=== PATIENT | male | born 1995 | race African-American/Black ===

== ENCOUNTER 2016-08-13 15:00 | Inpatient (IN) | payer OTHER ==
--- NOTE | ~2016-08-13 | HP ---
Unit #: [id number] #: [id number] Patient: ARNOL PRESTON [id number] [place] [address] [id number] I MR#: [id number] NAME: ARNOL PRESTON ROOM: P207 Age: 20 Sex: M Admission Date: 08/13/2016 : 1995 Attending Physician: Ant Bourgeois M.D. Admitting Physician: Ant Bourgeois M.D. Primary Care Physician: Generic Doctor Not In System HISTORY AND PHYSICAL HISTORY OF PRESENT ILLNESS The patient is a 20-year-old male admitted to [address] [place] [address] on 08/13/2016 to detox from alcohol. PAST MEDICAL HISTORY The patient denies. PAST SURGICAL HISTORY 1. Right thumb 2. A mole removal SOCIAL HISTORY The patient lives with a roommate. He smokes a 1/2 pack of cigarettes daily. He binges on a daily basis with alcohol and uses marijuana and cocaine. FAMILY MEDICAL HISTORY Noncontributory. ALLERGIES No known drug allergies. CURRENT MEDICATIONS The patient is not on any home medications. REVIEW OF SYSTEMS CONSTITUTIONAL: No fever or chills. HEENT: Denies any sore throat, ear pain or runny nose. CARDIOVASCULAR: Denies chest pain, irregular heart rhythm or palpitations. CHEST: Denies shortness of breath or cough. No hemoptysis. GASTROINTESTINAL: Denies nausea, vomiting, diarrhea or chronic constipation. ENDOCRINE: Denies history of increased thirst or urination. No recent significant weight loss or gain. GENITOURINARY: Denies dysuria, frequency, or hematuria. SKIN: Denies any rashes. HEMATOLOGIC: Denies history of increased bleeding or bruising. MUSCULOSKELETAL: Denies any hot, swollen joints. No generalized muscle pain. NEUROLOGIC: Denies problems with vision or speech. No frequent, severe headaches. No numbness, tingling or weakness in any extremities. Denies loss of bladder or bowel control. Unit #: [id number] #: [id number] Patient: ARNOL PRESTON PHYSICAL EXAM GENERAL: He is awake, alert and oriented in no acute distress. VITAL SIGNS: Temperature 98.0, heart rate 95, respiration 20, blood pressure 126/77. HEIGHT: 5'10". WEIGHT: 170 pounds. SKIN: Warm and dry without rash or lesion. HEENT: Normocephalic. TMs not viewed. Oral and nasal passages clear. Conjunctivae clear. PERRLA. EOMs intact. NECK: Supple without lymphadenopathy or thyromegaly. HEART: Regular rate and rhythm without murmur. LUNGS: Clear. ABDOMEN: Soft, nontender. : Not done. EXTREMITIES: No evidence of cyanosis, clubbing or edema. Moves all without focal deficit. NEUROLOGICAL: Grossly within normal limits. Cranial Nerves: II: Visual quintana are intact. III, IV AND : Extraocular movements are intact. Pupils are equal, round and reactive to light. V: Facial sensation is grossly normal. VII: Facial movements and expression are normal. VIII: Auditory acuity grossly intact. IX, X: Uvula is midline. Phonation is normal. XI: Patient shrugs shoulders and turns head normally. XII: Tongue protrudes in the midline. Sensory and Motor Function: Sensory and motor sensation is grossly normal. Motor: moves all extremities well. IMPRESSION 1. Psychiatric admission. 2. Alcohol dependence. 3. Nicotine dependence. RECOMMENDATIONS Psychiatric per psychiatrist. MEDICAL: No contraindication to participate in facility activities. MEDICAL PROGNOSIS Good. MEDICAL CONDITION Stable. Dictated by... Cece Rodriguez/karolina TD: 08/15/2016 03:46 JOB #: [id number] Unit #: [id number] #: [id number] Patient: ARNOL PRESTON HISTORY AND PHYSICAL Page 1 of 1 X EMELY CASH APRN HISTORY AND PHYSICAL
--- NOTE | ~2016-08-13 | PN ---
Unit #: [id number] #: [id number] Patient: ARNOL PRESTON [id number] [facility] [address] [place] [address] [id number] I MR#: [id number] NAME: ARNOL PRESTON ROOM: P207 Age: 20 Sex: M Admission Date: 08/13/2016 : 1995 Attending Physician: Ant Bourgeois M.D. Admitting Physician: Ant Bourgeois M.D. Primary Care Physician: Generic Doctor Not In System [facility] PROGRESS NOTES DATE OF SERVICE: 08/16/2016 DISCUSSION Mr. Gray is a 20-year-old male, seen on 08/16/2016. The patient interviewed, chart reviewed, and obtained information from nursing staff. The patient is compliant and cooperative. Mood, sad and dysphoric. The patient was able to maintain safe behavior, but withdrawn isolative, guarded. Complete review of systems unremarkable. MENTAL STATUS EXAMINATION General appearance, the patient dressed casually. Attention span and concentration, fair. Oriented in place and person. Mood and affect, sad and dysphoric. Speech, monotone. Thought process, concrete. The patient denied any thoughts of harming self or others. Recent and remote memory, poor. Insight and judgment, poor. DIAGNOSIS Polysubstance abuse; mood disorder, not otherwise specified. ASSESSMENT AND PLAN Advised to continue with current medication and therapeutic protocol. If needed, consider further adjustment of medication. Dictated by... June Allen/luis TD: 08/17/2016 17:30 JOB #: [id number] [facility] PROGRESS NOTES Page 1 of 1 X Ant Bourgeois MD PROGRESS NOTE
--- NOTE | ~2016-08-13 | PA ---
Unit #: [id number] #: [id number] Patient: ARNOL PRESTON [id number] [facility] [address] [place] [address] [id number] MR#: [id number] NAME: ARNOL PRESTON ROOM: P207 Age: 20 Sex: M Admission Date: 08/13/2016 : 1995 Date of Assessment: Attending Physician: Ant Bourgeois M.D. Admitting Physician: Ant Bourgeois M.D. PSYCHIATRIC ASSESSMENT REASON FOR ADMISSION Depression, aggression, and substance abuse. HISTORY OF PRESENT ILLNESS Mr. Arnol Preston is a 20-year-old male, who presented with the above-mentioned complaint. The patient reported "I drank a beer this morning," last one was rum, whiskey, beer, and a quarter of cocaine. The patient reported "I need help." The patient reports that he has been off from his bipolar medication. The patient has a history of previous treatment at [facility] in the past. The patient has poor support system, presented with the above complaint. The patient reported feeling sad, depressed, and diagnosed with bipolar disorder. The patient reported having suicidal ideation. The patient reported tobacco use, age of onset 15; alcohol, age of onset 13; marijuana, age of onset 11; crack cocaine, age of onset 18; and opioid, age of onset 15. The patient reported history of blackout. No history of any IV drug use. No history of HIV or hepatitis, but history of withdrawal symptoms such as diarrhea, poor appetite, sleep problem, and headache. PAST PSYCHIATRIC HISTORY Remarkable for history of previous treatment as mentioned above at [facility] in the past. MEDICAL HISTORY Unremarkable for any chronic medical illness. Musculoskeletal; muscle strength and tone, no atrophy or abnormal movement. Gait normal. MEDICATION HISTORY None. ALLERGIES No known drug allergies. SUBSTANCE ABUSE HISTORY Please see above. REVIEW OF SYSTEMS HEENT: Eyes, clear. Ears, nose, mouth, and throat; clear. CARDIOVASCULAR: Unremarkable. RESPIRATORY: Unremarkable. GI: Unremarkable. : Unremarkable. SKIN: Unremarkable. Unit #: [id number] #: [id number] Patient: ARNOL PRESTON LYMPH NODE: Unremarkable. NEUROLOGIC: Unremarkable. ENDOCRINE: Unremarkable. HEMATOLOGIC: Unremarkable. ALLERGIC/IMMUNOLOGIC: Unremarkable. MUSCULOSKELETAL: Muscle strength and tone, no atrophy or abnormal movement. Gait normal. MENTAL STATUS EXAMINATION CONSTITUTIONAL: Measurement of vital signs; temperature 98.0, heart rate 69, respiratory rate 20, and blood pressure 119/71. Height 5 feet 10 inches and weight 170 pounds. GENERAL APPEARANCE: The patient dressed casually. The patient did not show any facial deformity. MUSCULOSKELETAL: Please see above. PSYCHIATRIC EXAMINATION Description of speech, regular rate and normal volume. Description of thought process, goal directed. Description of association, intact. Description of abnormal psychotic thinking; somewhat guarded, but denied any thoughts of harming self or others. Having passive SI, substance abuse, and guarded. Description of the patient's judgment: Concerning everyday activity, poor. Social situation, poor. Concerning psychiatric condition, poor. Complete mental status examination; oriented in time, place, and person. Recent and remote memory, fair. Attention span and concentration, fair. Language, able to name object and repeat phrases. Fund of knowledge, aware of current event and passive vocabulary intact. Mood and affect, sad and dysphoric. Insight and judgment, fair to poor. ASSETS AND LIABILITIES Assets, the patient is articulate and able to take care of his ADL. Liability, history of depression and substance abuse. ADMITTING DIAGNOSES Psychiatric: Bipolar mood disorder, recurrent, depressed, moderate, F31.9; alcohol use disorder, severe, F10.20; cocaine use disorder, severe, F14.20; and cannabis abuse, moderate, F12.20. Secondary diagnosis: Deferred. Medical diagnosis: None. Stressors: Psychosocial stressors. PSYCHIATRIC PLAN AND TREATMENT GOAL AND DISCHARGE PLAN 1. Advised to admit the patient on the inpatient unit. Provide safe, supportive, and structured environment. 2. Ordered labs; CBC, CMP, UA, and UDS. 3. Precaution for aggression, self-harm, detox protocol, and detox monitoring. 4. The patient to attend all the programing, group therapy, individual therapy, and chemical dependency group. 5. Advised to start the patient on Zyprexa 5 mg b.i.d. If needed, consider further adjustment of medication. TREATMENT GOAL Unit #: [id number] #: [id number] Patient: ARNOL PRESTON To attain euthymic mood, gain insight into his problem, and learn coping skills. DISCHARGE PLAN Plan to stabilize the patient and consider followup in outpatient program. ESTIMATED LENGTH OF STAY 5 days. Dictated by... June Allen/luis TD: 08/14/2016 14:30 JOB #: [id number] PSYCHIATRIC ASSESSMENT Page 1 of 1 X Ant Bourgeois MD PSYCHIATRIC ASSESSMENT
--- NOTE | ~2016-08-13 | PN ---
Unit #: [id number] #: [id number] Patient: ARNOL PRESTON [id number] [facility] [address] [place] [address] [id number] I MR#: [id number] NAME: ARNOL PRESTON ROOM: P207 Age: 20 Sex: M Admission Date: 08/13/2016 : 1995 Attending Physician: Ant Bourgeois M.D. Admitting Physician: June Allen PROGRESS NOTES DATE OF SERVICE: 08/15/2016 DISCUSSION Arnol is a 20-year-old male, seen on 08/15/2016. The patient interviewed, chart reviewed, and obtained information from nursing staff. The patient compliant and cooperative. Mood is sad and dysphoric. Flat affect and withdrawn. Reported medication is making him sleepy. Currently, on Zyprexa, feeling better. Denied any thoughts of harming self or others. REVIEW OF SYSTEMS Complete review of systems unremarkable. MENTAL STATUS EXAMINATION General appearance, the patient dressed casually. Attention span and concentration, fair. Oriented in place and person. Mood and affect, sad and depressed. Speech, monotone. Thought process, concrete. The patient denied any thoughts of harming self or others, but seclusive and isolative. Recent and remote memory, poor. Insight and judgment, poor. DIAGNOSIS Bipolar mood disorder, not otherwise specified. ASSESSMENT AND PLAN Advised to continue with current medication with a plan to change Zyprexa to 10 mg at bedtime and stop Zyprexa in the morning. If needed, consider further adjustment of medication. Dictated by... June Allen/luis TD: 08/15/2016 12:54 JOB #: [id number] Unit #: [id number] #: [id number] Patient: ARNOL PRESTON PROGRESS NOTES Page 1 of 1 X Ant Bourgeois MD PROGRESS NOTE
--- NOTE | ~2016-08-13 | PN ---
Unit #: [id number] #: [id number] Patient: ARNOL PRESTON [id number] [facility] [address] [place] [address] [id number] MR#: [id number] NAME: ARNOL PRESTON ROOM: P207 Age: 20 Sex: M Admission Date: 08/13/2016 : 1995 Attending Physician: Ant Bourgeois M.D. Admitting Physician: Ant Bourgeois M.D. Primary Care Physician: Generic Doctor Not In System [facility] PROGRESS NOTES DATE 08/14/2016 DISCUSSION Mr. Gray is a 20-year-old male seen on 08/14/2016. The patient withdrawn, isolative, flat, sad, dysphoric, depressed mood. The patient's vital signs stable 98.0, 69,0, 20, 126/77. Complete review of systems unremarkable. MENTAL STATUS EXAMINATION General appearance, the patient dressed casually. Attention span and concentration fair. Oriented to time, place and person. Mood and affect sad, depressed. Speech monotone. Thought process concrete. The patient reported having passive SI, denied any homicidal ideation. Denied any psychotic symptoms but guarded, paranoid. Recent and remote memory poor. Insight and judgement poor. DIAGNOSES Bipolar mood disorder NOS Polysubstance abuse ASSESSMENT/PLAN Advise to continue with current medication. If needed consider further adjustment of medication. Dictated by... June Allen/karolina TD: 08/15/2016 16:58 JOB #: [id number] Unit #: [id number] #: [id number] Patient: ARNOL PERSTON [facility] PROGRESS NOTES Page 1 of 1 X Ant Bourgeois MD PROGRESS NOTE
[2016-08-14 11:35] LABS: BASOPHIL% 0.7 % (0-2.5); EOSINOPHIL# 0.1 X10e3 (0-0.7); EOSINOPHIL% 1.8 % (0.0-7.0); HEMATOCRIT 47.5 % (38.0-50.0); HEMOGLOBIN 15.5 gm/dL (13.0-16.0); LYMPHOCYTE# 2.1 X10e3 (1.0-3.5); LYMPHOCYTE% 31.9 % (17.0-45.0); MEAN CELL VOLUME 83.7 FL (83-96); MEAN CORPUSCULAR HEMOGLOBIN 27.3 PG (28-34); MEAN CORPUSCULAR HGB CONC 32.6 g/dL (30-36); MEAN PLATELET VOLUME 8.9 FL (6.5-11.5); MONOCYTE# 0.6 X10e3 (0-1.0); MONOCYTE% 9.6 % (3.0-12.0); NEUTROPHIL# 3.8 X10e3 (1.5-7.1); PLATELET COUNT 296 X10e3 (140-420); RED BLOOD COUNT 5.68 X10e (3.90-5.60); RED CELL DISTRIBUTION WIDTH 13.8 % (11.0-15.5); WHITE BLOOD COUNT 6.7 X10e3 (4.0-10.5)
[2016-08-14 11:39] LABS: DIFF IND NO
[2016-08-14 11:51] LABS: ALBUMIN SERUM 4.3 g/dL (3.5-5.0); BILIRUBIN,TOTAL 0.6 mg/dL (0.2-2.0); BUN/CREATININE RATIO 13.33; CALCIUM SERUM 9.4 mg/dL (8.4-10.2); CREATININE SERUM 0.9 mg/dL (0.6-1.4); POTASSIUM 4.2 mmol/L (3.5-5.1); PROTEIN TOTAL SERUM 7.2 g/dL (6.0-8.3)
== END 2016-08-17 11:20 | disposition home or self-care (01) | DRG 885 ==
LOC: P2S 16:50
PROVIDERS: Psychiatry & Neurology Psychiatry
PROC: HZ2ZZZZ Detoxification Services for Substance Abuse Treatment (ICD-10-PCS; principal; 2016-08-13)
DX: F31.32 Bipolar disorder, current episode depressed, moderate (principal); F14.20 Cocaine dependence, uncomplicated; F10.20 Alcohol dependence, uncomplicated; F12.20 Cannabis dependence, uncomplicated; F17.210 Nicotine dependence, cigarettes, uncomplicated
CPT/HCPCS: 80053; 85025; 86592